=== PATIENT | female | born 1990 ===

== ENCOUNTER 2021-07-30 14:31 | Inpatient (IN) | payer SELFPAY ==
[2021-07-30] MEDS ORDERED: LACTATED RINGERS 1,000 ML ONE (16:41)
[2021-07-30] MEDS ORDERED: LIDOCAINE (2%) 20 MG/1 ML VIAL 20 ML MDV INFILTRATI ONE (17:16)
[2021-07-30] MEDS ORDERED: MINERAL OIL 30 ML ORAL LIQD PO PRN (17:16)
[2021-07-30] MEDS ORDERED: PROMETHAZINE 25 MG TAB PO PRN (17:16)
[2021-07-30] MEDS ORDERED: miSOPROStol 200 MCG TAB PR PRN (17:16)
[2021-07-30] MEDS ORDERED: ePHEDrine SULFATE 50 MG/1 ML INJ IV PRN (17:16)
[2021-07-30] MEDS ORDERED: CARBOPROST TROMETHAMINE 250 MCG/1 ML INJ IM PRN (17:16)
[2021-07-30] MEDS ORDERED: ACETAMINOPHEN 325 MG TAB PO PRN (17:16)
[2021-07-30] MEDS ORDERED: OXYTOCIN 10 UNIT/1 ML INJ IM PRN (17:16)
[2021-07-30] MEDS ORDERED: LOPERAMIDE 2 MG CAP PO PRN (17:16)
[2021-07-30] MEDS ORDERED: TERBUTALINE 1 MG/1 ML INJ SUB-Q PRN (17:16)
[2021-07-30] MEDS ORDERED: ONDANSETRON 4 MG/2 ML INJ IV PRN (17:16)
[2021-07-30] MEDS ORDERED: METHYLERGONOVINE MALEATE 0.2 MG/ML VIAL IM PRN (17:16)
[2021-07-30] MEDS ORDERED: NalbUPHINE 10 MG/1 ML INJ IV PRN (17:16)
--- NOTE | 2021-07-30 17:25 | History and Physical Report ---
History of Present Illness Date of examination: 07/30/21 Date of admission: 07/30/21 Chief complaint: SROM History of present illness: at 37.2wks with SROM today; EDC 08/18/21 and care at [facility]. Pt admits to movement, denies vag bleed or headache. labs with blood type O positive, neg screen, VDRL neg, rubella immune, HepBsAg neg, HIV neg, GC/chlam neg and abnormal 3hrgtt, therefore Gest DM controlled with diet and hgb A1c 6 in May 2021 and pt non-compliant with glucose log. Pt also has right breast mass Past History Past Medical History: no pertinent history Past Surgical History: no surgical history [employer] History: chlamydia (treated in 2014) Social history: no significant social history - Obstetrical History Expected Date of Delivery: 08/18/21 Actual Gestation: 37 Week(s) 2 Day(s) : 6 Hx # Term Pregnancies: 5 (GDM with 2nd preg) Number of Living Children: 5 Medications and Allergies Allergies Allergy/AdvReac Type Severity Reaction Status Date / Time No Known Allergies Allergy Verified 05/10/21 08:35 Home Medications Medication Instructions Recorded Confirmed Last Taken Type Acetaminophen/Codeine 1 tab PO Q4HR PRN #20 tablet 11/21/13 Unknown Rx [Acetaminophen-Codeine #3 TAB] Neomy/Polymyx B/Hc Otic Susp 4 drops OT QID #1 bottle 11/21/13 Unknown Rx [Cortisporin] Prenatabs Rx Tablet 1 tab PO DAILY 06/20/14 10/19/15 10/19/15 History 1 Docusate Sodium [Colace] 100 mg PO BID PRN #30 capsule 08/07/14 10/19/15 Unknown Rx Famotidine [Pepcid] 20 mg PO BID #60 tablet 09/26/15 Unknown Rx Review of Systems All systems: negative (SROM) - Vital Signs Vital signs: Vital Signs Pulse BP Pulse Ox 93 H 121/75 98 07/30/21 15:16 07/30/21 15:16 07/30/21 15:16 Temp Pulse Resp BP Pulse Ox 97.7 F 91 H 20 131/75 99 07/30/21 16:24 07/30/21 17:16 07/30/21 16:24 07/30/21 16:24 07/30/21 17:16 - Physical Exam Breasts: Positive: deferred Lungs: Positive: Normal air movement Abdomen: Positive: soft Genitourinary (Female): Positive: normal external genitalia - Obstetrical FHR: category 1 Uterine Contraction Monitor Mode: External Cervical Dilatation: 2 Cervical Effacement Percentage: 50 (vertex by u/s) station: -4 Uterine Contraction Pattern: Irregular Results Result Diagrams: 07/30/21 17:12 07/30/21 17:12 Abnormal lab results 07/30/21 Range/Units 15:20 Membranes Rupture Positive A (Negative) All other labs normal. Assessment and Plan Term IUP at 37.3 wks, PROM confirmed with ROM plus, non-compliant, GBS neg, GDM on diet only, non-compliant with glucose log 1. Admit to labor and delivery, u/s confirmed vertex presentation 2. Augment with pitocin 3. May have epidural or IV pain med as desired 4. Accucheck every hr in active labor, otherwise then every 2hrs. Expect
[2021-07-30] MEDS ORDERED: LACTATED RINGERS 1,000 ML IV SCH (17:30)
[2021-07-30 17:41] LABS: Hematocrit 33.6 % (30.3-42.9); Hemoglobin 11.4 gm/dl (10.1-14.3); Mean Corpuscular HGB Conc 34 % (30-34); Mean Corpuscular Volume 83 fl (79-97); Platelet Count 290 K/mm3 (140-440); Red Blood Count 4.05 M/mm3 (3.65-5.03)
[2021-07-30] MEDS ORDERED: OXYTOCIN DRIP 30 UNITS/500 ML BAG IV SCH ×2 (18:00)
[2021-07-30 18:01] LABS: Alanine Aminotransferase 21 units/L (7-56); Albumin 3.7 g/dL (3.9-5); Blood Urea Nitrogen 10 mg/dL (7-17); Calcium 9.4 mg/dL (8.4-10.2); Hemolysis Index 131
[2021-07-30 18:13] LABS: BUN/Creatinine Ratio 20
--- NOTE | 2021-07-30 18:40 | Ultrasound Report ---
US OB limited INDICATION: presentation. COMPARISON: None available. FINDINGS: presentation is cephalic. Baby spine position is posterior left. heart rate measures 1 41 bpm. Signer Name: Herbert Jama MD Signed: 07/30/2021 6:35 PM Workstation Name: [id number]
[2021-07-30] MEDS ORDERED: INSULIN GLARGINE 100 UNITS/ML SUB-Q STA (22:24)
[2021-07-30] MEDS ORDERED: miSOPROStol 25 MCG TAB PO SCH (23:00)
[2021-07-30] MEDS ORDERED: SODIUM CHLORIDE 0.9% 1000 ML 1,000 ML IV SCH (23:00)
[2021-07-30] MEDS: miSOPROStol 25 MCG TAB PO SCH (23:54)
--- NOTE | 2021-07-31 00:09 | Ultrasound Report ---
ULTRASOUND OBSTETRIC COMPLETE INDICATION / CLINICAL INFORMATION: Gestational DM (poorly controlled), PROM at term. Clinical Gestational Age (GA) in weeks, days: 37 weeks 2 days TECHNIQUE: Transabdominal. COMPARISON: 07/30/2021 FINDINGS: NUMBER: Single PRESENTATION: cephalic MATERNAL ADNEXA: No significant abnormality. AMNIOTIC FLUID VOLUME: decreased AMNIOTIC FLUID INDEX (KI) in cm (if measured): 1.5 MEASUREMENTS: - Biparietal Diameter = 8.7 cm = 35 weeks 0 days - Head Circumference = 32.4 cm = 36 weeks 4 days - Abdominal Circumference = 32.1 cm = 36 weeks 0 day - Femur Length = 7.9 cm = 40 weeks 2 days - Estimated Weight (in grams, if calculated): 3105 - Heart Rate (beats per minute): 143 ADDITIONAL FINDINGS: None. PERCENTILE ESTIMATED WEIGHT (if calculated): 52% AVERAGE ULTRASOUND AGE (AUA) in weeks, days = 37 weeks 0 days IMPRESSION: 1. Single live intrauterine with AUA of 37 weeks 0 days. 2. Diminished amniotic fluid index, measuring 1.5 cm. 3. No other significant abnormality. Signer Name: Cedric Jennings MD Signed: 07/31/2021 12:05 AM Workstation Name: [id number]
[2021-07-31] MEDS: fentaNYL 100 MCG/2 ML INJ IV PRN ×2 (04:11→06:09)
[2021-07-31] MEDS: miSOPROStol 25 MCG TAB PO SCH (04:16)
--- NOTE | 2021-07-31 06:59 | Procedure Note ---
OB Delivery Note - Delivery Date of Delivery: 07/24/21 Surgeon: SALOMÓN DONOVAN Transactional Paralegal: FORTUNATO BUCIO Estimated blood loss: 100cc - Vaginal Delivery presentation: vertex Delivery position: OA Intrapartum events: PROM->1hr before delivery Delivery induction: misoprostol Delivery monitor: none Route of delivery: Delivery placenta: spontaneous Delivery cord: 3 umbilical vessels Episiotomy: none Delivery laceration: none - Infant A at 1 minute: 8 at 5 minutes: 9 Gender: Female
[2021-07-31] MEDS ORDERED: ACETAMINOPHEN 325 MG TAB PO PRN (07:30)
[2021-07-31] MEDS ORDERED: HYDROcodone/ACETAMINOPHEN 5-325 MG TAB PO PRN (07:30)
[2021-07-31] MEDS ORDERED: BENZOCAINE/MENTHOL 20/0.5% TOP SPRAY 56 GM TP PRN (07:30)
[2021-07-31] MEDS ORDERED: LANOLIN/ZINC/DIMETHICONE (LANSINOH) 7 GM TP PRN (07:30)
[2021-07-31] MEDS ORDERED: WITCH HAZEL/ GLYCERIN PAD TP PRN (08:00)
[2021-07-31] MEDS ORDERED: OXYTOCIN DRIP 30,000 MILLIUNITS/500 ML BAG IV ONE (08:22)
[2021-07-31] MEDS: IBUPROFEN 800 MG TAB PO SCH (20:00)
[2021-07-31] MEDS ORDERED: MAGNESIUM HYDROXIDE (MOM) ORAL LIQD UDC PO PRN (22:00)
[2021-07-31] MEDS: DOCUSATE SODIUM 100 MG CAP PO SCH (22:00)
[2021-08-01] MEDS: IBUPROFEN 800 MG TAB PO SCH ×3 (06:39→23:57)
[2021-08-01 08:42] LABS: Mean Corpuscular HGB Conc 34 % (30-34); Mean Corpuscular Volume 83 fl (79-97); Platelet Count 302 K/mm3 (140-440); Red Blood Count 4.21 M/mm3 (3.65-5.03); Red Cell Distribution Width 14.5 % (13.2-15.2)
--- NOTE | 2021-08-01 11:55 | Progress Note ---
Assessment and Plan A: day 1 S/P . Gestational diabetes. P: Continue routine care. Anticipate discharge home tomorrow if patient continues to do well. Subjective - Subjective Date of service: 08/01/21 Principal diagnosis: day 1 S/P Patient reports: appetite normal, voiding normally, pain well controlled, flatus, ambulating normally, no dizzy ambulation, no nauseated : doing well Objective - Vital Signs Latest vital signs: Vital Signs Temp Pulse Resp BP Pulse Ox Pulse Ox 08/01/21 08:10 96 08/01/21 07:41 97.7 F 73 22 119/68 96 08/01/21 06:39 18 08/01/21 00:11 98.4 F 76 20 118/67 95 07/31/21 20:00 18 100 07/31/21 16:23 97.6 F 78 18 114/71 98 Intake and Output 07/31/21 08/01/21 08/01/21 23:59 07:59 15:59 Intake Total 720 Output Total 500 Balance -500 720 Intake: Oral 360 Intake, Free Water 360 Output: Urine 500 Void 500 Other: Total, Intake Amount 360 Total, Output Amount 500 # Voids Void 3 1 - Exam Cardiovascular: Present: Regular rate Lungs: Present: Clear to auscultation Abdomen: Present: normal appearance, soft. Absent: distention, tenderness, guarding, rigidity Uterus: Present: normal, firm, fundal height below umbilicus. Absent: bogginess, tenderness Extremities: Absent: tenderness, edema - Labs Labs: Abnormal lab results 07/31/21 07/31/21 08/01/21 Range/Units 14:05 20:29 09:50 POC Glucose 155 H 124 H 113 H (70-105) mg/dL
[2021-08-01] MEDS: DOCUSATE SODIUM 100 MG CAP PO SCH ×2 (15:44→22:00)
[2021-08-02] MEDS: IBUPROFEN 800 MG TAB PO SCH (06:14)
--- NOTE | 2021-08-02 06:38 | Progress Note ---
Subjective - Subjective Date of service: 08/02/21 Principal diagnosis: day 1 S/P Interval history: stable for DC to home Brenda Jackson MD Patient reports: appetite normal, voiding normally, pain well controlled, ambulating normally [place]: doing well Objective - Vital Signs Latest vital signs: Vital Signs Temp Pulse Resp BP BP Pulse Ox Pulse Ox 08/02/21 01:03 98.1 F 78 18 102/57 96 08/01/21 19:15 100 08/01/21 18:18 98.0 F 87 22 115/74 08/01/21 08:10 96 08/01/21 07:41 97.7 F 73 22 119/68 96 08/01/21 06:39 18 Intake and Output 08/01/21 08/01/21 08/02/21 15:59 23:59 07:59 Intake Total 360 480 Balance 360 480 Intake: Intake, Free Water 360 480 Other: # Voids Void 2 2 - Exam Breasts: Present: deferred Cardiovascular: Present: Regular rate, Normal S1 Lungs: Present: Clear to auscultation, Normal air movement Abdomen: Present: normal appearance, soft, normal bowel sounds Vulva: both: normal Uterus: Present: fundal height below umbilicus Extremities: Present: normal Deep Tendon Reflex Grade: Normal +2 - Labs Labs: Abnormal lab results 08/01/21 08/01/21 Range/Units 09:50 13:08 POC Glucose 113 H 107 H (70-105) mg/dL
--- NOTE | 2021-08-02 06:39 | Discharge Summary ---
Providers - Providers Date of Admission: 07/30/21 17:16 Date of discharge: 08/02/21 Attending physician: ALAYNA SALAS Primary care physician: ALAYNA SALAS Hospitalization Delivery: complications: none Discharge diagnosis: IUP at term delivered Condition at discharge: Stable Disposition: 01 HOME / SELF CARE / HOMELESS Plan - Provider Discharge Summary Activity: no sex for 6 weeks Additional instructions: [] Smoking cessation referral if applicable(refer to patient education folder for contact #) [] Refer to [facility] Booklet Call your doctor immediately for: * Fever > 100.5 * Heavy vaginal bleeding ( >1 pad per hour) * Severe persistent headache * Shortness of breath * Reddened, hot, painful area to leg or breast * Drainage or odor from incision. * Keep incision clean and dry at all times and follow doctor's instructions regarding bathing/showering - Follow up plan Follow up: ALAYNA SALAS MD [Primary Care Provider] - 6 Weeks
[2021-08-02 08:49] VITALS: BP 120/65
[2021-08-02] MEDS: DOCUSATE SODIUM 100 MG CAP PO SCH (10:37)
== END 2021-08-02 11:00 | disposition home or self-care (01) | DRG 807 ==
LOC: TRG 14:31 → APU 14:33 → TRG 17:42 → LD 18:47 → OB 07-31 08:31
PROVIDERS: ADMIT Obstetrics & Gynecology; ATTEND Obstetrics & Gynecology
PROC: 10E0XZZ Delivery of Products of Conception, External Approach (ICD-10-PCS; principal; 2021-07-31)
PROC: 3E0P7VZ Introduction of Hormone into Female Reproductive, Via Natural or Artificial Opening (ICD-10-PCS; 2021-07-31)
DX: O24.420 Gestational diabetes mellitus in childbirth, diet controlled (principal); Z37.0 Single live birth; Z3A.37 37 weeks gestation of pregnancy; O42.02 Full-term premature rupture of membranes, onset of labor within 24 hours of rupture
CPT/HCPCS: 36415; 76815; 76816; 80053; 82962; 83036; 84112; 85027; 86592; 86850; 86900; 86901; 99211; G0378; G0463; J1815; J2590; J3010; J7120; U0003